=== PATIENT | male | born 1950 | race Caucasian/White ===

== ENCOUNTER 2016-08-31 14:14 | Emergency (ER) | payer OTHER ==
[2016-08-31 14:46] VITALS: BP 154/96; PULSE 100; RESP 16; TEMP 98.2; O2SAT 93
--- NOTE | 2016-08-31 15:15 | UCPHY ---
H & P Time Seen by Provider: 08/31/16 14:33 Patient Type: New HPI/ROS: This patient was skiing [place] with a helmet on and cross tips with fall to his face with laceration to the periorbital region right side. He denies any other injuries from the incident. He thinks his contact was knocked out from the fall. He reports mild pain from the laceration and from a periorbital contusion. ROS: No LOC. He was not days. He has no headache. No neck pain. Neuro: No numbness tingling confusion or focal weakness. GI: No nausea vomiting. Musculoskeletal: No other injuries. 7 point ROS is otherwise negative. Past Medical/Surgical History: Otherwise healthy. He wears contacts Smoking Status: Unknown if ever smoked Physical Exam: Vital signs are normal General: Patient is in no acute distress. HEENT: Right-sided periorbital ecchymosis is present with no bony tenderness. There is a triangle shaped flap to the forehead right side 8 x 8 mm with mild bleeding. No foreign bodies. There is infraorbital 2 cm laceration as well partial-thickness but by few mm with mild bleeding and no foreign bodies. Nose atraumatic. Ears: Clear bilaterally with no hemotympanum. Oropharynx: No dental trauma or malocclusion. No intraoral lacerations. Eyes: Pupils are equal and reactive to light. Extraocular motions are intact. Optic fundi: Clear with no papilledema or hemorrhage. Visual cues reviewed as per nurse's she. I feel that the decreased visual acuity in the affected eye is due to his missing the contact. On slit-lamp exam I appreciate no evidence of corneal injury, there is no hyphema. No other abnormal mole findings are noted Neck: Trachea is midline with no stridor. The patient has no midline neck tenderness and retains a full range of motion without increase in pain. Lungs: Clear to auscultation bilaterally no significant chest wall tenderness. Cardiac: Regular rate and rhythm no murmur gallop or rub. Abdomen: Soft nontender no organomegaly Back: Nontender Extremities: Atraumatic Neuro: GCS of 15. Cranial nerves II through XII intact. No sensory or motor deficits are appreciated. Constitutional: Initial Vital Signs Temperature (C) 36.8 C 08/31/16 14:32 Heart Rate 100 08/31/16 14:32 Respiratory Rate 16 08/31/16 14:32 Blood Pressure 154/96 H 08/31/16 14:32 O2 Sat (%) 93 08/31/16 14:32 O2 Delivery Mode Room Air Allergies/Adverse Reactions: No Known Allergies Allergy (Unverified 08/31/16 14:46) Home Medications: Medication Instructions Recorded Advair 250/50 (*) 08/31/16 Cholesterol Med 08/31/16 MDM/Departure - MDM Procedures: The wound is 1.5 cm-forehead wound and 2 cm-infraorbital wound The wound was copiously irrigated with saline. The wound was explored for foreign bodies and none were found. The wound was prepped and draped in the normal sterile fashion. The wound was anesthetized using 1% plain lidocaine and 0.5% Marcaine 50 50 mix, 27 gauge needle, 3 mL total use between the 2 wounds.. The edges of the forehead wound were reapproximated using 5 0 Ethilon-1 interrupted suture and 4 running sutures with good hemostasis and cosmesis. The infraorbital wound is closed with 7 running sutures 5 0 Ethilon with good tissue approximation, hemostasis cosmesis. Patient tolerated the procedure well with no complications. The patient tolerated the procedure well. ED Course/Re-evaluation: Discussion: Facial laceration periorbital contusion no evidence of significant head injury. - Depart Disposition: Home, Routine, Self-Care Clinical Impression: Periorbital contusion of right eye Qualifiers: Encounter type: initial encounter Qualified Code(s): S05.11XA - Contusion of eyeball and orbital tissues, right eye, initial encounter Condition: Good Instructions: Facial Laceration (ED) Additional Instructions: Diagnosis: Facial lacerations 2. Periorbital contusion Plan: Keep the wound clean and dry for the next 2 days. Then clean gently with warm soapy water daily Tylenol or ibuprofen for discomfort if needed Recommended follow up with Ophthalmology for further evaluation of your eye sometime within the next week. Referrals: Migel Galvez MD [Medical Doctor] - As per Instructions - PQRS PQRS Measurement: 134: Depression screening and followup, PRIME GARY-PHQ2 (12 years and older) Over the last 2 weeks, how often have you been bothered by any of the following problems? 1. Feeling down, depressed, or hopeless? 2. Little interest or pleasure in doing things? Patient answered no to both 1 and 2 130: Documentation of medications. Reviewed all patient medications, doses, route and frequency. 226: Do you smoke? [No.] 47: 65 and older: Advanced care planning. Patient designates surrogate decision maker as spouse 51: 18 years old and older with diagnosis of COPD, spirometry performance. NA 52: 18 years old and older with COPD and symptoms of COPD or FEV1<60% predicted prescribed a B Agonist. NA
== END 2016-08-31 15:50 | disposition home or self-care (01) ==
LOC: CED 14:14
PROC: 0HQ1XZZ Repair Face Skin, External Approach (ICD-10-PCS; principal; 2016-08-31)
PROC: 08QNXZZ Repair Right Upper Eyelid, External Approach (ICD-10-PCS; principal; 2016-08-31)
DX: S05.11XA Contusion of eyeball and orbital tissues, right eye, initial encounter (principal); V00.321A Fall from snow-skis, initial encounter; Y93.23 Activity, snow (alpine) (downhill) skiing, snowboarding, sledding, tobogganing and snow tubing
CPT/HCPCS: 12013; G0463; 12011-PO; 99203-PO

== ENCOUNTER → 2018-04-18 | Outpatient (CLI) | payer OTHER | LOC: FIMAGING 12:10 | PROVIDERS: ATTEND Internal Medicine Critical Care Medicine | DX: R91.8 Other nonspecific abnormal finding of lung field (principal) ==